=== PATIENT | male | born 1955 | race Caucasian/White ===

== ENCOUNTER → 2024-07-29 | Outpatient (CLI) | payer MEDICARE ==
[~2024-07-29] MED LIST: ALBU10.7; ALBU90AE3 PO; AMLO-382 PO; AMOX-580 PO; APIX5TAB3 PO; ATOR10TA70 PO; BENZ200C53 PO; BUPR-564 PO; BUPR1FIL20 SL; CARV-50 PO; CELE-127 PO; CLON0.1T2 PO; DOXA4TAB42 PO; DULO60CA65 PO; EMPA10TA PO; FLO0.4C; FURO20TA4; LISI20TA28 PO; LOSA25TA41 PO; LUBI24CA9; METF-438 PO; NITR0.4T48; PANT40TA54 PO; PRED20TA; SEMA2PEN; TEST75GE10 TOP; mometasone
[2024-07-29 11:36] LABS: BASOPHILS # (AUTO) 0.1 X10'3 (0-0.2); BASOPHILS % (AUTO) 0.7 % (0-1); EOSINOPHILS # (AUTO) 0.4 X10'3 (0-0.9); HEMATOCRIT 33.3 % (42.0-52.0); HEMOGLOBIN 10.9 g/dl (14.0-17.9); LYMPHOCYTES # (AUTO) 1.1 X10'3 (1.1-4.8); LYMPHOCYTES % (AUTO) 12.5 % (21-51); MEAN CORPUSCULAR HGB CONC 32.9 g/dL (33.0-36.5); MEAN CORPUSCULAR VOLUME 88.3 FL (78-98); MEAN PLATELET VOLUME 7.8 FL (7.4-10.4); MONOCYTES # (AUTO) 0.7 X10'3 (0-0.9); MONOCYTES % (AUTO) 8.2 % (2-12); NEUTROPHILS # (AUTO) 6.6 X10'3 (1.8-7.7); NEUTROPHILS % (AUTO) 74.6 % (42-75); PLATELET COUNT 212 X10'3 (140-440); RED BLOOD COUNT 3.77 X10'6 (4.70-6.10); RED CELL DISTRIBUTION WIDTH 14.3 % (11.5-14.5); WHITE BLOOD COUNT 8.9 X10'3 (4.5-11.0)
[2024-07-29 11:44] LABS: ALBUMIN 3.7 G/DL (3.4-5.0); ANION GAP 6 (8-16); APTT 33 SECONDS (22-32); BLOOD UREA NITROGEN 17 MG/DL (7-18); CALCIUM 9.4 MG/DL (8.5-10.1); CHLORIDE 101 MMOL/L (99-107); CHOL/HDL RATIO 1.9 (0.00-4.99); CHOLESTEROL 109 MG/DL (0-200); CREATININE 0.81 MG/DL (0.60-1.10); GLUCOSE 102 MG/DL (70-104); HDL CHOLESTEROL 57 MG/DL (35-60); INR 1.1 INR; LDL CHOLESTEROL 49 MG/DL (50-100); POTASSIUM 4.2 MMOL/L (3.5-5.1); PROTHROMBIN TIME 11.5 SECONDS (9.0-12.0); SODIUM 135 MMOL/L (135-145); TOTAL CARBON DIOXIDE 27.8 MMOL/L (24-32); TRIGLYCERIDES 34 MG/DL (20-135); eGFR > 90 ML/MIN
== END | disposition home or self-care (01) ==
LOC: LAB 10:52 → EDSTATUS 08-02 18:30
PROVIDERS: ATTEND Internal Medicine Interventional Cardiology
DX: Z01.818 Encounter for other preprocedural examination (principal); I35.0 Nonrheumatic aortic (valve) stenosis; I11.9 Hypertensive heart disease without heart failure; E78.5 Hyperlipidemia, unspecified
CPT/HCPCS: 36415; 80048; 80061; 85025; 85610; 85730

== ENCOUNTER 2024-09-08 11:23 | Outpatient (CLI) | payer MEDICARE ==
[~2024-09-08 11:23] MED LIST changes: -ALBU10.7; -CLON0.1T2 PO; -FLO0.4C; +FLO0.4C PO; -FURO20TA4; +FURO20TA4 PO; -LISI20TA28 PO; -LUBI24CA9; +LUBI24CA9 PO; -NITR0.4T48; -PRED20TA; +PRED20TA PO
[2024-09-08] MEDS ORDERED: IODIXANOL 320 MG/ML INFUS..BTL 100ML IV ONE (11:58)
[2024-09-08 12:09] LABS: BASOPHILS % (AUTO) 0.6 % (0-1); EOSINOPHILS # (AUTO) 0.4 X10'3 (0-0.9); EOSINOPHILS % (AUTO) 5.1 % (0-6); HEMATOCRIT 34.1 % (42.0-52.0); HEMOGLOBIN 10.8 g/dl (14.0-17.9); LYMPHOCYTES # (AUTO) 0.9 X10'3 (1.1-4.8); LYMPHOCYTES % (AUTO) 13.2 % (21-51); MEAN CORPUSCULAR HGB CONC 31.8 g/dL (33.0-36.5); MEAN CORPUSCULAR VOLUME 84.8 FL (78-98); MEAN PLATELET VOLUME 7.8 FL (7.4-10.4); MONOCYTES # (AUTO) 0.6 X10'3 (0-0.9); MONOCYTES % (AUTO) 8.7 % (2-12); NEUTROPHILS # (AUTO) 5.2 X10'3 (1.8-7.7); NEUTROPHILS % (AUTO) 72.4 % (42-75); PLATELET COUNT 221 X10'3 (140-440); RED BLOOD COUNT 4.02 X10'6 (4.70-6.10); RED CELL DISTRIBUTION WIDTH 14.3 % (11.5-14.5); WHITE BLOOD COUNT 7.2 X10'3 (4.5-11.0)
[2024-09-08 12:22] LABS: APTT 33 SECONDS (22-32); INR 1.1 INR; PROTHROMBIN TIME 11.4 SECONDS (9.0-12.0)
[2024-09-08 12:55] LABS: ALANINE AMINOTRANSFERASE 30 U/L (12-78); ALBUMIN/GLOBULIN RATIO 1.3 (1.1-1.5); ALKALINE PHOSPHATASE 84 IU/L (46-116); ANION GAP 7 (8-16); ASPARTATE AMINO TRANSFERASE 15 U/L (10-37); BILIRUBIN,TOTAL 0.5 MG/DL (0.1-1.0); BLOOD UREA NITROGEN 28 MG/DL (7-18); BUN/CREATININE RATIO 26.2 (10.0-20.0); CALCIUM 9.5 MG/DL (8.5-10.1); CHLORIDE 99 MMOL/L (99-107); CREATININE 1.07 MG/DL (0.60-1.10); GLUCOSE 113 MG/DL (70-104); POTASSIUM 3.9 MMOL/L (3.5-5.1); PRO BRAIN NATRIURETIC PEPTIDE 371 PG/ML (0-125); SODIUM 135 MMOL/L (135-145); TOTAL CARBON DIOXIDE 29.2 MMOL/L (24-32); TOTAL PROTEIN 7.2 G/DL (6.4-8.2); eGFR 69 ML/MIN
[2024-10-12] MEDS ORDERED: EPIN0.3P3 IM (18:05)
[2024-10-12] MEDS ORDERED: NITR0.4T51 SL (18:05)
[2024-10-12] MEDS ORDERED: GENT30CR TOP (18:05)
[2024-10-12] MEDS ORDERED: [UNRECOGNIZED DRUG - OTHER] (18:05)
[2024-10-12] MEDS ORDERED: HYDR-3686 PO (18:05)
[2024-10-12] MEDS ORDERED: [UNRECOGNIZED DRUG - OTHER] (18:05)
[2024-10-12] MEDS ORDERED: VIT D (18:05)
[2024-10-12] MEDS ORDERED: TURMERIC PO (18:05)
[2024-10-12] MEDS ORDERED: PREG50CA PO (18:05)
[2024-10-12] MEDS ORDERED: CLON0.1T2 PO (18:05)
[2024-10-12] MEDS ORDERED: FLAX SEED OIL PO (18:05)
[2024-10-12] MEDS ORDERED: AMOX-100 PO (18:05)
[2024-10-12] MEDS ORDERED: SEMA1PEN3 SUBCUT (18:05)
[2024-10-12] MEDS ORDERED: MVI (18:05)
[2024-10-12] MEDS ORDERED: CURCUMIN PO (18:05)
[2024-10-12] MEDS ORDERED: POTASSIUM PO (18:05)
[2024-10-12] MEDS ORDERED: EMPA10TA PO (18:05)
[2024-10-12] MEDS ORDERED: MOME45CR3 TOP (18:05)
[2024-10-12] MEDS ORDERED: COQ10 PO (18:05)
[2024-10-19] MEDS ORDERED: MULT-1085 PO (19:09)
== END 2024-09-08 23:59 | disposition home or self-care (01) ==
LOC: RAD 11:23
PROVIDERS: ATTEND Internal Medicine Cardiovascular Disease
DX: I35.0 Nonrheumatic aortic (valve) stenosis (principal); R06.02 Shortness of breath; I65.29 Occlusion and stenosis of unspecified carotid artery; I51.7 Cardiomegaly; N62 Hypertrophy of breast; M47.819 Spondylosis without myelopathy or radiculopathy, site unspecified
CPT/HCPCS: 36415; 71046; 71275; 74174; 75572; 80053; 83880; 85025; 85610; 85730; Q9967

== ENCOUNTER 2024-10-20 07:37 | Inpatient (IN) | payer MEDICARE ==
[2024-10-12 11:42] LABS: BILIRUBIN,URINE NEGATIVE (Neg); CLARITY,URINE CLEAR (Clear); COLOR,URINE YELLOW (Yellow); GLUCOSE, URINE NEGATIVE (Neg); KETONES,URINE NEGATIVE (Neg); LEUKOCYTE ESTERASE ,URINE NEGATIVE (Neg); NITRITES, URINE NEGATIVE (Neg); OCCULT BLOOD,URINE NEGATIVE (Neg); PH,URINE 5.5 (4.8-8.0); PROTEIN,URINE NEGATIVE (Neg); UROBILINOGEN,URINE 0.2 E.U/dL (0.2-1.0)
[2024-10-12 11:43] LABS: BASOPHILS % (AUTO) 0.5 % (0-1); EOSINOPHILS # (AUTO) 0.4 X10'3 (0-0.9); EOSINOPHILS % (AUTO) 4.6 % (0-6); LYMPHOCYTES # (AUTO) 1.1 X10'3 (1.1-4.8); LYMPHOCYTES % (AUTO) 12.4 % (21-51); MEAN CORPUSCULAR HEMOGLOBIN 26.9 PG (27.0-31.0); MEAN CORPUSCULAR VOLUME 81.6 FL (78-98); MEAN PLATELET VOLUME 8.1 FL (7.4-10.4); MONOCYTES # (AUTO) 0.7 X10'3 (0-0.9); MONOCYTES % (AUTO) 7.6 % (2-12); NEUTROPHILS # (AUTO) 6.7 X10'3 (1.8-7.7); NEUTROPHILS % (AUTO) 74.9 % (42-75); PRE OP HEMATOCRIT 34.9 % (42.0-52.0); PRE OP HEMOGLOBIN 11.5 g/dL (14.0-17.9); PRE OP PLATELET COUNT 223 X10'3 (140-440); PRE OP WHITE BLOOD COUNT 8.9 10'3 (4.8-10.8); RED BLOOD COUNT 4.28 X10'6 (4.70-6.10); RED CELL DISTRIBUTION WIDTH 15.7 % (11.5-14.5)
[2024-10-12 11:49] LABS: HEMOGLOBIN A1C 5.7 % (4.5-6.2)
[2024-10-12 11:50] LABS: UA COLLECTION TYPE CLN CATCH MIDSTREAM
[2024-10-12 11:54] LABS: PRE OP PROTIME 10.7 SECONDS (9.0-12.0)
[2024-10-12 12:04] LABS: ALBUMIN 3.8 G/DL (3.4-5.0); ALBUMIN/GLOBULIN RATIO 1.1 (1.1-1.5); ALKALINE PHOSPHATASE 88 IU/L (46-116); BLOOD UREA NITROGEN 22 MG/DL (7-18); BUN/CREATININE RATIO 25.3 (10.0-20.0); CALCIUM 9.6 MG/DL (8.5-10.1); CHLORIDE 100 MMOL/L (99-107); CREATININE 0.87 MG/DL (0.60-1.10); PRE OP ALT 19 U/L (30-65); PRE OP ANION GAP 7 (8-16); PRE OP AST 13 U/L (10-37); PRE OP BILIRUB, TOTAL 0.4 MG/DL (0.0-1.0); PRE OP GLUCOSE 90 MG/DL (70-104); PRE OP POTASSIUM 4.2 MMOL/L (3.4-5.1); PRE OP SODIUM 136 MMOL/L (135-145); PRO BRAIN NATRIURETIC PEPTIDE 245 PG/ML (0-125); TOTAL CARBON DIOXIDE 29.3 MMOL/L (24-32); TOTAL PROTEIN 7.3 G/DL (6.4-8.2); eGFR 88 ML/MIN
[2024-10-20] VITALS (27 sets, daily range): BP systolic 84–198; BP diastolic 58–88; PULSE 64–79; RESP 10–16; TEMP 97.2–97.7; O2SAT 93–100
[~2024-10-20] VITALS: Ht 180.3 cm; Wt 110.8 kg
[2024-10-20] MEDS: DOCUMENT DATE & TIME OF BETA-BLOCKER PO ONE (05:30)
[2024-10-20] MEDS: nitroPRUSSIDE (NIPRIDE) (200MCG/ML) 100ML Drip IV SCH (05:30)
[2024-10-20] MEDS: phenylephrine inj 50 MG in normal saline 250ml IV solN IV SCH (05:30)
[~2024-10-20 07:37] MED LIST changes: -AMOX-580 PO; -BENZ200C53 PO; +CLON0.1T2 PO; +COQ10 PO; +CURCUMIN PO; +EPIN0.3P3 IM; +FLAX SEED OIL PO; +GENT30CR TOP; +HYDR-3686 PO; -LOSA25TA41 PO; +MOME45CR3 TOP; +MULT-1085 PO; +NITR0.4T51 SL; +POTASSIUM PO; +PREG50CA PO; +SEMA1PEN3 SUBCUT; -SEMA2PEN; +TURMERIC PO; +VIT D; +[UNRECOGNIZED DRUG - OTHER]; +[UNRECOGNIZED DRUG - OTHER]; -mometasone; +ondansetron/PF 4mg/2ml inj IV PRN; +protamine sulfate 10mg/ml inj. ONE
[2024-10-20] MEDS: famotidine 20mg tablet PO ONE (08:55)
[2024-10-20] MEDS ORDERED: LIDOcaine 1% (10mg/ml) 2ml vial ONE (08:56)
[2024-10-20] MEDS: VANCOMYCIN 1,500MG inj. 1,500 MG in normal saline 500ml IV soln 300 ML IV ONE (08:56)
[2024-10-20] MEDS: ringers solution, lacted 1,000 ML IV SCH ×2 (08:56→09:10)
[2024-10-20] MEDS: aspirin 325mg tablet PO ONE (08:56)
[2024-10-20] MEDS ORDERED: meperidine/PF 25mg/ml syringe IV PRN ×2 (09:10)
[2024-10-20] MEDS ORDERED: proCHLORperazine 10 MG/2 ml inj IV PRN ×2 (09:10→11:10)
[2024-10-20] MEDS ORDERED: ondansetron/PF 4mg/2ml inj IV PRN ×2 (09:10→11:10)
[2024-10-20] MEDS ORDERED: morphine 2 MG/ML inj. syringe IV PRN (09:10)
[2024-10-20] MEDS ORDERED: iohexol 350MG/ML 100ml bottle IV ONE (09:31)
[2024-10-20] MEDS ORDERED: heparin 1,000 UNITS/NS 500ml 1,500 ML ONE (09:31)
[2024-10-20] MEDS ORDERED: LISI20TA28 PO (09:45)
[2024-10-20] MEDS ORDERED: hydrOXYzine 25 MG tablet PO PRN (09:50)
[2024-10-20] MEDS ORDERED: celeCOXIB 100mg capsule PO PRN (09:50)
[2024-10-20] MEDS ORDERED: nitroGLYCERIN 0.4mg SUBLingual tab SL PRN (09:50)
[2024-10-20] MEDS ORDERED: albuterol 2.5 MG/3 ML nebule NEB PRN (09:50)
[2024-10-20] MEDS ORDERED: propofol inj 20 ML IV ONE (09:53)
[2024-10-20] MEDS ORDERED: midazolam 1 mg/ML 2ml injection ONE (09:53)
[2024-10-20] MEDS ORDERED: fentaNYL/PF 50MCG/1 ML 2ML syringe ONE (09:53)
[2024-10-20] MEDS ORDERED: sevoflurane 250ml liquid IH ONE (09:54)
[2024-10-20] MEDS ORDERED: heparin 1,000unit/ml 10ml vial 10 ML ONE (10:09)
[2024-10-20] MEDS ORDERED: diphenhydrAMINE 25mg capsule PO PRN (11:10)
[2024-10-20] MEDS ORDERED: docusate sod 100mg capsule PO PRN (11:10)
[2024-10-20] MEDS ORDERED: potassium Cl 20mEq/100mL bag 100 ML IV PRN (11:10)
[2024-10-20] MEDS ORDERED: potassium Cl 40MEQ/270ML bag 250 ML IV PRN (11:10)
[2024-10-20] MEDS ORDERED: magnesium sulf-water 4G/100mL 100 ML IV PRN (11:10)
[2024-10-20] MEDS ORDERED: pantoprazole 40mg Tablet.DR PO PRN (11:10)
[2024-10-20] MEDS ORDERED: potassium Cl 20 mEq SR tablet PO PRN (11:10)
[2024-10-20] MEDS ORDERED: dextrose 50%-water 50ml dispensing syringe IV PRN ×2 (11:10)
[2024-10-20] MEDS ORDERED: DEXTROSE 15 GM of carb/4 tabs (each vial/BOTTLE has 4 tablets) PO PRN ×2 (11:10)
[2024-10-20] MEDS ORDERED: acetaminophen 325mg tablet PO PRN (11:10)
[2024-10-20] MEDS ORDERED: potassium Cl 40MEQ/1/2NS 520ml 520 ML IV PRN (11:10)
[2024-10-20] MEDS ORDERED: potassium CL 10mEq/100ml bag 100 ML IV PRN (11:10)
[2024-10-20] MEDS ORDERED: glucagon, human recombinant 1mg kit SUBCUT PRN (11:10)
[2024-10-20] MEDS ORDERED: magnesium sulf-water 2g/50mL 50 ML IV PRN (11:10)
[2024-10-20] MEDS: hydrALAZINE 20mg/ml inj. IV PRN (11:28)
[2024-10-20] MEDS: meperidine/PF 25mg/ml syringe IV PRN (11:30)
[2024-10-20] MEDS: acetaminophen 1,000mg/100ml IV 100 ML IV ONE (11:33)
[2024-10-20] MEDS: morphine 4 MG/ML inj SYRINge IV PRN (11:51)
[2024-10-20] MEDS: INSULIN LISPRO 100 UNIT/ML INSULN.PEN MULTI-DOSE SQ SCH (12:00)
[2024-10-20] MEDS ORDERED: INSULIN LISPRO 100 UNIT/ML INSULN.PEN MULTI-DOSE SQ SCH (12:00)
[2024-10-20] MEDS ORDERED: SEMA2PEN SUBCUT (12:42)
[2024-10-20] MEDS: buprenorphine/naloxone 8MG-2MG SUBlingual film SL SCH (12:52)
[2024-10-20] MEDS: normal saline 1000ml 1,000 ML IV SCH (15:28)
[2024-10-20] MEDS: sod chloride 0.9% 10ml flush syringe IV SCH (16:12)
[2024-10-20] MEDS: HYDROcodone/acetaminophen 5mg/325mg tablet PO PRN (17:07)
[2024-10-20] MEDS: lubiprostone 24mcg capsule PO SCH (20:00)
[2024-10-20] MEDS: furosemide 20MG tablet PO SCH (20:00)
[2024-10-20] MEDS: mometasone furoate 0.1% cream 15gm tube TP SCH (20:00)
[2024-10-20] MEDS: atorvastatin 10mg tablet PO SCH (21:24)
[2024-10-20] MEDS: predniSONE 20 mg tablet PO PRN (21:25)
[2024-10-20] MEDS: carVEDilol 12.5mg tablet PO SCH (21:25)
[2024-10-20] MEDS: VANCOMYCIN 1GM 200ML H20 (PEG) 200 ML IV SCH (21:45)
[2024-10-20] MEDS: ALPRAZolam 0.25mg tablet PO PRN (22:36)
[2024-10-21] VITALS (10 sets, daily range): BP systolic 122–180; BP diastolic 64–86; PULSE 77–84; RESP 14–17; TEMP 97.5–98; O2SAT 97
[2024-10-21] MEDS: labetalol 20mg/4ml (5mg/ml) syringe IV PRN (01:21)
[2024-10-21 07:42] LABS: BASOPHILS % (AUTO) 0.4 % (0-1); EOSINOPHILS % (AUTO) 0.5 % (0-6); HEMATOCRIT 35.1 % (42.0-52.0); HEMOGLOBIN 11.5 g/dl (14.0-17.9); LYMPHOCYTES # (AUTO) 0.4 X10'3 (1.1-4.8); LYMPHOCYTES % (AUTO) 4.8 % (21-51); MEAN CORPUSCULAR HEMOGLOBIN 26.7 PG (27.0-31.0); MEAN CORPUSCULAR HGB CONC 32.7 g/dL (33.0-36.5); MEAN CORPUSCULAR VOLUME 81.7 FL (78-98); MEAN PLATELET VOLUME 8.2 FL (7.4-10.4); MONOCYTES # (AUTO) 0.2 X10'3 (0-0.9); MONOCYTES % (AUTO) 2.6 % (2-12); NEUTROPHILS # (AUTO) 8.1 X10'3 (1.8-7.7); NEUTROPHILS % (AUTO) 91.7 % (42-75); PLATELET COUNT 196 X10'3 (140-440); RED BLOOD COUNT 4.29 X10'6 (4.70-6.10); RED CELL DISTRIBUTION WIDTH 15.9 % (11.5-14.5); WHITE BLOOD COUNT 8.8 X10'3 (4.5-11.0)
[2024-10-21] MEDS: doxazosin mesylate 2mg tablet PO SCH (07:54)
[2024-10-21] MEDS: amLODIPine 5mg tablet PO SCH (07:55)
[2024-10-21] MEDS: pregabalin 25mg capsule PO SCH (07:56)
[2024-10-21] MEDS: multivitamins, therapeutics tablet PO SCH (07:56)
[2024-10-21] MEDS: losartan 50mg tablet PO SCH (07:58)
[2024-10-21] MEDS: duloxetine 30mg CAPSULE.DR PO SCH (07:59)
[2024-10-21] MEDS: tamsulosin 0.4mg capsule PO SCH (07:59)
[2024-10-21] MEDS: BUPROPION HCL 150MG XL 24 HR 150 MG TAB PO SCH (07:59)
[2024-10-21] MEDS: pantoprazole 40mg Tablet.DR PO SCH (07:59)
[2024-10-21] MEDS ORDERED: FLAX SEED OIL 1000 MG PO SCH (08:00)
[2024-10-21] MEDS: gentamicin 0.1% topical ointment 15gm TP SCH (08:00)
[2024-10-21] MEDS ORDERED: VALSARTAN PO SCH (08:00)
[2024-10-21] MEDS ORDERED: lisinopril 20mg tablet PO SCH (08:00)
[2024-10-21] MEDS ORDERED: [UNRECOGNIZED DRUG - OTHER] PO SCH (08:00)
[2024-10-21] MEDS ORDERED: AMLODIPINE PO SCH (08:00)
[2024-10-21 08:21] LABS: ALANINE AMINOTRANSFERASE 20 U/L (12-78); ALBUMIN 3.7 G/DL (3.4-5.0); ALBUMIN/GLOBULIN RATIO 1.1 (1.1-1.5); ALKALINE PHOSPHATASE 93 IU/L (46-116); ANION GAP 7 (8-16); ASPARTATE AMINO TRANSFERASE 19 U/L (10-37); BILIRUBIN,TOTAL 0.7 MG/DL (0.1-1.0); BLOOD UREA NITROGEN 11 MG/DL (7-18); BUN/CREATININE RATIO 13.4 (10.0-20.0); CALCIUM 8.8 MG/DL (8.5-10.1); CHLORIDE 104 MMOL/L (99-107); CREATININE 0.82 MG/DL (0.60-1.10); GLUCOSE 141 MG/DL (70-104); MAGNESIUM 2.1 MG/DL (1.5-2.4); POTASSIUM 4.3 MMOL/L (3.5-5.1); PRO BRAIN NATRIURETIC PEPTIDE 755 PG/ML (0-125); SODIUM 139 MMOL/L (135-145); TOTAL CARBON DIOXIDE 28.4 MMOL/L (24-32); TOTAL PROTEIN 7.1 G/DL (6.4-8.2); eCRCL 93 ML/MIN; eGFR > 90 ML/MIN
== END 2024-10-21 11:55 | disposition home or self-care (01) | DRG 266 ==
LOC: PAS IN 07:37 → PCU 3S 15:25
PROVIDERS: ADMIT Internal Medicine Cardiovascular Disease; ATTEND Internal Medicine Cardiovascular Disease
PROC: B41D1ZZ Fluoroscopy of Aorta and Bilateral Lower Extremity Arteries using Low Osmolar Contrast (ICD-10-PCS; 2024-10-20)
PROC: 03HY32Z Insertion of Monitoring Device into Upper Artery, Percutaneous Approach (ICD-10-PCS; 2024-10-20)
PROC: 02RF38Z Replacement of Aortic Valve with Zooplastic Tissue, Percutaneous Approach (ICD-10-PCS; principal; 2024-10-20 09:54)
DX: I35.0 Nonrheumatic aortic (valve) stenosis (principal); Z00.6 Encounter for examination for normal comparison and control in clinical research program; I50.33 Acute on chronic diastolic (congestive) heart failure; I11.0 Hypertensive heart disease with heart failure; I48.91 Unspecified atrial fibrillation; E11.9 Type 2 diabetes mellitus without complications; E78.5 Hyperlipidemia, unspecified; Z88.1 Allergy status to other antibiotic agents
CPT/HCPCS: 33361; 36415; 71045; 71046; 76937; 80053; 81003; 82948; 83036; 83735; 83880; 85025; 85347; 85610; 85730; 86885; 86900; 86901; 86920; 87081; 93005; 93308; A4314; A4618; A6258; A6449; C1756; C1758; C1760; C1769; C1894; G0378; J0131; J0360; J1644; J1815; J2003; J2175; J2250; J2270; J2371; J2704; J2720; J3010; J3370; J3372; J3490; J7030; J7040; J7050; J7120; J7512; Q9967